=== PATIENT | male | born 1985 | race African-American/Black ===

== ENCOUNTER 2021-10-27 12:35 | Emergency (ER) | payer SELFPAY | END 2021-10-27 12:41 | disposition left against medical advice (07) | LOC: ER 12:35 | DX: K08.89 Other specified disorders of teeth and supporting structures (principal); Z53.21 Procedure and treatment not carried out due to patient leaving prior to being seen by health care provider ==

== ENCOUNTER 2022-01-31 16:23 | Emergency (ER) | payer SELFPAY ==
[~2022-01-31] VITALS: Ht 172.7 cm; Wt 64.4 kg
[2022-01-31 16:25] VITALS: BP 115/72
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
== END 2022-01-31 17:45 | disposition home or self-care (01) ==
LOC: ER 16:23
DX: M25.512 Pain in left shoulder (principal); R51.9 Headache, unspecified; R07.81 Pleurodynia; G89.11 Acute pain due to trauma; Y08.89XA Assault by other specified means, initial encounter; Y93.89 Activity, other specified; Y92.89 Other specified places as the place of occurrence of the external cause; Y99.8 Other external cause status
CPT/HCPCS: 70450; 70486; 71101; 73030; 99284-25